=== PATIENT | female | born 1940 | race Two or more races ===

== ENCOUNTER 2020-05-12 13:33 | Outpatient (CLI) | payer OTHER | END 2020-05-12 13:52 | disposition home or self-care (01) | LOC: NUCLEAR 13:33 | PROVIDERS: ATTEND Internal Medicine Endocrinology, Diabetes & Metabolism | DX: M81.0 Age-related osteoporosis without current pathological fracture (principal) ==

== ENCOUNTER 2021-07-25 07:29 | Outpatient (CLI) | payer OTHER | END 2021-07-25 07:36 | disposition home or self-care (01) | LOC: RAD 07:29 | PROVIDERS: ATTEND Physical Medicine & Rehabilitation Pediatric Rehabilitation Medicine | DX: M77.31 Calcaneal spur, right foot (principal); M15.0 Primary generalized (osteo)arthritis; M60.88 Other myositis, other site ==